=== PATIENT | male | born 1945 | race Caucasian/White ===

== ENCOUNTER 2018-06-24 11:09 | Day surgery (SDC) | payer MEDICARE, OTHER ==
[~2018-06-24 11:09] MED LIST: ACETAZOLAMIDE 250 MG PO ONE; FENTANYL 100MCG/2ML SOL ONE; MIDAZOLAM 2 MG/2 ML SOL ONE
[2018-06-24] MEDS: PHENYLEPHRINE HCL 10% OPHTHAL SOL ONE ×2 (11:24→11:36)
[2018-06-24] MEDS: PROPARACAINE HCL 0.5% OPHTHALMIC SOL ONE ×3 (11:24→11:58)
[2018-06-24] MEDS: CYCLOPENTOLATE 1% SOL ONE ×2 (11:25→11:36)
[2018-06-24] MEDS: KETOROLAC 0.5% OPTH 60 DROP SOL ONE ×2 (11:26→11:36)
[2018-06-24] MEDS ORDERED: IMPRIMIS ONE (11:51)
[2018-06-24] MEDS ORDERED: BSS 500 ML 500 ML IR ONE (11:51)
[2018-06-24] MEDS ORDERED: POVIDONE IODINE 5% SOL ONE (11:51)
[2018-06-24] MEDS ORDERED: LIDOCAINE HCL 1% MPF 30 SOL ONE (11:51)
[2018-06-24] MEDS ORDERED: OFLOXACIN 0.3% OPHTHAL 1 DROP SOL LEFTEYE ONE (12:15)
[2018-06-24 12:30] VITALS: BP 150/73; PULSE 64; RESP 18; TEMP 97.4; O2SAT 94
== END 2018-06-24 12:56 | disposition home or self-care (01) | DRG 125 ==
LOC: SURG 11:09
PROVIDERS: ATTEND Ophthalmology
DX: H25.89 Other age-related cataract (principal); E11.9 Type 2 diabetes mellitus without complications
CPT/HCPCS: 82962; J2250; J3010; A9270-GY; J2001

== ENCOUNTER 2018-10-04 00:02 | Emergency (ER) | payer OTHER, MEDICARE ==
[2018-10-04] MEDS ORDERED: HYDROMORPHONE HCL 2 MG/ML SOL IV ONE ×2 (00:16→00:57)
[2018-10-04] MEDS ORDERED: ONDANSETRON HCL 4 MG/2 ML SOL IV ONE (00:17)
[2018-10-04] MEDS ORDERED: SODIUM CHLORIDE 0.9% 1000ML 1,000 ML IV ONE ×2 (00:17→01:39)
[2018-10-04] MEDS ORDERED: HYDROMORPHONE 1 MG/ML SYRINGE ONE ×2 (00:18→00:58)
[2018-10-04 00:21] LABS: BASOPHILS % (AUTO) 1 % (0-3); EOSINOPHILS % (AUTO) 4 % (0-9); HEMATOCRIT 42 % (39-53); HEMOGLOBIN 14.1 gm/dl (13.5-17.7); LYMPHOCYTES % (AUTO) 27.6 % (10-50); MEAN CORPUSCULAR HGB CONC 33.5 gm/dl (32.0-36.0); MEAN CORPUSCULAR VOLUME 92 fL (80-100); MONOCYTES % (AUTO) 8.5 % (0-12)
[2018-10-04] MEDS ORDERED: ONDANSETRON HCL 4 MG/2 ML SOL ONE (00:22)
[2018-10-04 00:36] LABS: ALBUMIN 2.7 gm/dl (3.4-5.0); ALCOHOL 0.003 gm/dl (0.000-0.08); BILIRUBIN,TOTAL 0.3 mg/dl (0.2-1.0); CALCIUM 8.2 mg/dl (8.5-10.1); CARBON DIOXIDE 22.5 mEq/L (21-32); POTASSIUM 3.8 mMol/L (3.5-5.1); TOTAL PROTEIN 7.4 gm/dl (6.4-8.2)
[2018-10-04 00:37] VITALS: RESP 20
[2018-10-04 00:38] LABS: CREATININE 2.76 mg/dl (0.80-1.30)
[2018-10-04] MEDS ORDERED: PROCHLORPERAZINE EDISYLATE 5 MG/ML SOL ONE (01:39)
[2018-10-04] MEDS ORDERED: PROCHLORPERAZINE EDISYLATE 5 MG/ML SOL IV ONE (01:39)
[2018-10-04 02:18] LABS: AMPHETAMINES NEGATIVE (NEGATIVE); BARBITUATES NEGATIVE (NEGATIVE); BENZODIAZEPINES NEGATIVE (NEGATIVE); CANNABINOL(THC) NEGATIVE (NEGATIVE); COCAINE(COC) NEGATIVE (NEGATIVE); METHADONE NEGATIVE (NEGATIVE); METHAMPHETAMINES NEGATIVE (NEGATIVE); OPIATES(OPI) NEGATIVE (NEGATIVE); OXYCODONE(OXY) NEGATIVE (NEGATIVE); PROPOXYPHENE(PPX) NEGATIVE (NEGATIVE); TRICYCLIC ANTIDEPRESSANTS NEGATIVE (NEGATIVE)
[2018-10-04 02:41] VITALS: TEMP 97.6
[2018-10-04 03:01] VITALS: BP 150/66; PULSE 91; O2SAT 90
== END 2018-10-04 02:27 | disposition short-term general hospital (02) | DRG 914 ==
LOC: ED 00:02
DX: T14.90XA Injury, unspecified, initial encounter (principal); V03.90XA Pedestrian on foot injured in collision with car, pick-up truck or van, unspecified whether traffic or nontraffic accident, initial encounter; S72.001A Fracture of unspecified part of neck of right femur, initial encounter for closed fracture; R40.2362 Coma scale, best motor response, obeys commands, at arrival to emergency department; R40.2142 Coma scale, eyes open, spontaneous, at arrival to emergency department; R40.2252 Coma scale, best verbal response, oriented, at arrival to emergency department; E11.9 Type 2 diabetes mellitus without complications; I10 Essential (primary) hypertension; S22.41XA Multiple fractures of ribs, right side, initial encounter for closed fracture
CPT/HCPCS: 70450; 71250; 72125; 74176; 80053; 80305; 80307; 85025; 96365; 96374; 96375; 99284; 99285; G0390; J0780; J2405; J1170

== ENCOUNTER 2018-12-18 09:45 | Outpatient (CLI) | payer OTHER ==
[2018-10-04 03:01] VITALS: O2SAT 90
== END 2018-12-18 09:46 | disposition home or self-care (01) | DRG 561 ==
LOC: CONVCARE 09:45
PROVIDERS: ATTEND Orthopaedic Surgery
DX: S72.21XD Displaced subtrochanteric fracture of right femur, subsequent encounter for closed fracture with routine healing (principal)
CPT/HCPCS: 73552

== ENCOUNTER 2019-01-15 09:52 | Outpatient (CLI) | payer OTHER ==
[2018-10-04 03:01] VITALS: O2SAT 90
== END 2019-01-15 09:53 | disposition home or self-care (01) | DRG 561 ==
LOC: CONVCARE 09:52
PROVIDERS: ATTEND Orthopaedic Surgery
DX: S72.21XD Displaced subtrochanteric fracture of right femur, subsequent encounter for closed fracture with routine healing (principal)
CPT/HCPCS: 73552

== ENCOUNTER 2019-04-23 11:09 | Outpatient (CLI) | payer OTHER ==
[2018-10-04 03:01] VITALS: O2SAT 90
== END 2019-04-23 11:10 | disposition home or self-care (01) | DRG 556 ==
LOC: CONVCARE 11:09
PROVIDERS: ATTEND Orthopaedic Surgery
DX: M25.561 Pain in right knee (principal)
CPT/HCPCS: 73560